=== PATIENT | male | born 1955 | race Caucasian/White ===

== ENCOUNTER → 2016-12-17 | Outpatient (CLI) | payer BC ==
[~2016-12-17] MED LIST: HYDR-5688 PO; LISI-461 PO; NAPR1TAB9 PO; SILD100T PO
--- NOTE | 2016-12-17 14:03 | DIAGNOSTIC IMAGING REPORT ---
MRI right knee RIGHT LOWER EXT JOINT WITHOUT CLINICAL HISTORY: RIGHT KNEE PAIN, R/O TEAR Right trauma. Pain. TECHNIQUE: Multiaxial MRI acquisition COMPARISON STUDY: None FINDINGS: Signal characteristics the osseous structures are uniform throughout. There is a very small joint effusion. Anterior and posterior cruciate ligaments are intact. Medial and lateral patellar retinaculum are intact. There are minimal findings of chondromalacia. Evaluation of menisci shows presence of a focal tear inferior surface posterior horn medial meniscus. Anterior meniscus. Be unremarkable. Lateral meniscus is within normal limits. IMPRESSION: 1. Focal tear inferior surface posterior horn medial meniscus. 2. Minimal chondromalacia patella. 3. Very small joint effusion. Electronically signed by: Augustus Storm M.D. 12/17/2016 2:02 PM Dictated Date/Time: 12/17/2016 1:55 PM
== END | disposition home or self-care (01) ==
LOC: C.MRIBC 12:42
PROVIDERS: ATTEND Orthopaedic Surgery
DX: S83.241A Other tear of medial meniscus, current injury, right knee, initial encounter (principal); X58.XXXA Exposure to other specified factors, initial encounter

== ENCOUNTER → 2016-12-30 | Day surgery (SDC) | payer BC ==
[2016-12-19 08:51] VITALS: BMI 43.0
[2016-12-19 08:53] VITALS: Ht 167.6 cm; Wt 120.2 kg
--- NOTE | 2016-12-19 09:13 | PAT Medication Instructions ---
Service Date Dec 19, 2016. Current Home Medication List Lisinopril (Zestril), 10 MG PO HS Sildenafil Citrate (Viagra), 100 MG PO PRN Medication Instructions For Your Scheduled Surgery - DO NOT take the following medications as the night before surgery: Lisinopril (Zestril), 10 MG PO HS Nothing to eat or drink after midnight* If you have any questions please call us at [phone] or [phone] or [phone]
[2016-12-19 10:12] LABS: HEMATOCRIT 41.8 % (42-52); MEAN CELL VOLUME 89.9 fL (80-100); MEAN CORPUSCULAR HEMOGLOBIN 31.4 pg (25-34); MEAN CORPUSCULAR HGB CONC 34.9 g/dl (32-36); MEAN PLATELET VOLUME 9.8 fL (7.4-10.4); PLATELET COUNT 241 K/uL (130-400); RED BLOOD COUNT 4.65 M/uL (4.7-6.1); WHITE BLOOD COUNT 8.99 K/uL (4.8-10.8)
[2016-12-19 10:31] LABS: BUN/CREATININE RATIO 11.9 (10-20); CALCIUM 8.5 mg/dl (8.5-10.1); CREATININE 0.89 mg/dl (0.60-1.40); POTASSIUM 4.1 mmol/L (3.5-5.1)
[~2016-12-30] VITALS: Ht 167.6 cm; Wt 120.2 kg
[~2016-12-30] MED LIST changes: +BUPIVACAINE 0.5 % 5 MG/1 ML MPF 30ML VIAL ONE; +CEFAZOLIN 3000 MG/65 ML D5W IV SCH; +DEXAMETHASONE SOD INJ 4 MG/ML VIAL ONE; +EpINEphrine INJ 1MG/ML AMP 1 MG/ML AMP ONE; +FENTANYL CITRATE INJ 50 MCG/1 ML 2 ML VIAL IV PRN; +FENTANYL CITRATE INJ 50 MCG/1 ML 2 ML VIAL ONE; +HYDROCODONE/ACETAMOPHEN 5/325MG TAB PO PRN; +KETOROLAC TROMETHAMINE 30 MG/ML VIAL IV. PRN; +KETOROLAC TROMETHAMINE 30 MG/ML VIAL ONE; +LACTATED RINGER'S 1000ML 1,000 ML IV PRN; +LACTATED RINGER'S 1000ML 1,000 ML IV SCH; +LIDOCAINE HCL 2% 2 ML VIAL (20MG/ML) ONE; +MIDAZOLAM HCL 1 MG/ML 2ML VIAL ONE; -NAPR1TAB9 PO; +ONDANSETRON INJ 2 MG/ML 2 ML VIAL IV PRN; +ONDANSETRON INJ 2 MG/ML 2 ML VIAL ONE; +PROPOFOL IV EMULSION 10 MG/ML 20 ML VIAL IV ONE; +ROPIVACAINE 0.5% 5 MG/ML 30 ML VIAL ONE; +SODIUM CHLORIDE 0.9% 1000ML 1,000 ML IV SCH
--- NOTE | 2016-12-30 06:52 | History & Physical Bridge - SC ---
H&P Re-Evaluation Bridge Note: I have examined the patient, reviewed the History & Physical and in the interval since the performance of the History & Physical I have noted the following changes of clinical significance: No changes noted
--- NOTE | 2016-12-30 07:28 | [facility] Post Operative Brief Note ---
Immediate Operative Summary Operative Date Dec 30, 2016. Pre-Operative Diagnosis Torn right medial meniscus Post-Operative Diagnosis same Procedure(s) Performed Right Knee Arthroscopy, Partial Medial Meniscectomy Surgeon Dr Couch Security Supervisor Surgeon(s) Deborah Romero PA-C Findings ABOVE Specimens 0 Anesthesia LMA Complication(s) None Disposition Recovery Room / PACU
--- NOTE | 2016-12-30 07:44 | Discharge Instructions-SurgCtr ---
Discharge Instructions Date of Service Dec 30, 2016. Visit Reason for Visit: Right Knee Current Tear Of Medial Cartilage Discharge Discharge Diagnosis / Problem: SAME ABOVE Discharge Goals Goal(s): Decrease discomfort, Improve function Activity Recommendations Activity Limitations: as noted below Lifting Limitations: gradually increase as tolerated Exercise/Sports Limitations: gradually increase as tolerated Driving or Machine Use: resume 1 day after discharge (AND WHEN COMFORTABLE GETTING FOOT FROM BRAKE TO GAS ) Anesthesia . Post Anesthesia Instructions: If you have had General Anesthesia or IV Sedation: * Do not drive today. * Resume driving when surgeon permits. * Do not make important decisions or sign legal documents today. * Call surgeon for: 1. Temperature elevations greater than 101 degrees F. 2. Uncontrollable pain. 3. Excessive bleeding. 4. Persistent nausea and vomiting. 5. Medication intolerance (nausea, vomiting or rash). * For nausea and vomiting use only clear liquids such as: tea, soda, bouillon until nausea subsides, then gradually increase diet as tolerated. * If you have any concerns or questions, call your surgeon's office. If physician is unavailable and it is an emergency, call 911 or go to the nearest emergency room. . Instructions / Follow-Up Instructions / Follow-Up MEDICATIONS: * Resume previous medications unless instructed otherwise by your surgeon. * Always take pain medication on a full stomach or with food to avoid upset stomach. * Do not drink alcohol or drive while taking narcotics. * Ibuprofen or Tylenol may be taken if narcotic not needed. SPECIAL CARE INSTRUCTIONS: __ None _X_ Keep extremity elevated and iced x 48 hours; apply ice 20-30 minutes 8-10 times/day. May remove at night. _X_ Crutches _X_ May discard when able __ Brace/Post-op shoe __ 24 hrs/day __ Remove at night _X_ Dressing __ Maintain until seen in office, may shower with plastic over site _X_ Remove dressings in 24-48 hours and then may shower _X_ Cover incisions with band-aids after showering __ Do not remove steri-strips Call physician if chills or temperature rises above 102 degrees or pain unrelieved by prescribed pain medications. Office [phone] Diet Recommendations Home Diet: no limitations Fluid Restriction: None Procedures Procedures Performed: Right Knee Arthroscopy, Partial Medial Meniscectomy Pending Studies Studies pending at discharge: no Work Instructions Return To Work: after follow-up (OR WHEN PAIN IS TOLERABLE ) Medical Emergencies . Who to Call and When: Medical Emergencies: If at any time you feel your situation is an emergency, please call 911 immediately. . Non-Emergent Contact Non-Emergency issues call your: Primary Care Provider Call Non-Emergent contact if: you have a fever, temperature is above 101.5 . . "Provider Documentation" section prepared by Umang Romero.
[2016-12-30 08:15] VITALS: BP 162/84; PULSE 65; TEMP 36.6; O2SAT 95
--- NOTE | 2016-12-30 08:15 | Anesthesia Progress Nt - [facility] ---
Anesthesia Post Op Note Date & Time Dec 30, 2016 at 08:15 Vital Signs Pain Intensity: 0 Vital Signs Past 12 Hours Date Time Temp Pulse Resp B/P Pulse Ox O2 Delivery O2 Flow Rate FiO2 12/30/16 08:10 160/87 12/30/16 08:09 37.1 92 Room Air 12/30/16 08:08 72 15 12/30/16 08:08 74 15 92 12/30/16 08:05 136/94 12/30/16 08:03 72 17 94 12/30/16 08:03 71 17 12/30/16 08:02 71 24 97 12/30/16 08:02 69 24 12/30/16 08:01 128/92 12/30/16 08:00 140/114 12/30/16 07:57 68 15 97 12/30/16 07:57 69 15 12/30/16 07:55 130/94 12/30/16 07:52 67 12 12/30/16 07:52 67 12 98 12/30/16 07:50 146/101 12/30/16 07:47 72 13 12/30/16 07:47 72 13 97 12/30/16 07:45 151/92 12/30/16 07:43 145/90 12/30/16 07:42 36.8 76 12 145/90 96 Mask 7 12/30/16 06:29 36.6 72 18 175/98 95 Room Air Notes Mental Status: alert / awake / arousable, participated in evaluation Pt Amnestic to Procedure: Yes Nausea / Vomiting: adequately controlled Pain: adequately controlled Airway Patency, RR, SpO2: stable & adequate BP & HR: stable & adequate Hydration State: stable & adequate Anesthetic Complications: no major complications apparent Pt doing well.
--- NOTE | 2016-12-30 11:54 | OPERATIVE REPORT ---
DATE OF OPERATION: 12/30/2016 PREOPERATIVE DIAGNOSIS: Medial meniscus tear, right knee. POSTOPERATIVE DIAGNOSIS: Same. PROCEDURE: Right knee arthroscopy, partial medial meniscectomy. SURGEON: Dr. Couch. LOFT PATTERNMAKER: FLORENCE Siddiqi. ANESTHESIOLOGIST: Dr. Tello. ANESTHESIA: LMA. DRAINS: None. COMPLICATIONS: None. CONDITION: The patient tolerated the procedure well and returned to the recovery room in apparent satisfactory condition. INDICATIONS FOR SURGERY: Raj is a 61-year-old male who has had increasing pain and discomfort in the right knee consistent with a medial meniscus tear based on his exam, MRI and history. Went over treatment options and elected to go ahead and proceed with surgery. Procedure, expected outcomes and side effects were all explained in detail. DESCRIPTION OF PROCEDURE: The patient was taken to the operating room, placed supine on the operating table and put to sleep by the anesthesia department. Examination of the right knee was performed. Ligamentous huggins was stable. Went ahead and prepped and draped in the usual sterile fashion. We began arthroscopic examination in the anteromedial and anterolateral portals. Immediately we had a fair amount of bleeding at his knee to the point where visualization was very poor. I checked with the anesthesia department and his blood pressure was up over 200. We elected to, as this was the first 2 minutes of the case we let the tourniquet back down and elected to work on bringing his pressure down, we finally got it down to about 150 range. We then put the pump pressure up to about 45, we put the thigh tourniquet to 300 to 325 and were able to get better visualization of his knee. Examination of the medial compartment, he had a tear of the posterior horn of the medial meniscus. We came in with upbiting scissors and full radius resector and trimmed it back to a stable rim. Articular surfaces looked to be in pretty good shape. ACL, lateral compartment were fine. We found a little erosion on the medial facet of the patella with synovitis in this part of his knee joint. This was shaved out. Remaining examination he was in good shape. Knee was copiously irrigated. All cannulas were removed. Portals were closed with 4-0 nylon sutures. 30 mL of ropivacaine, 10 mg of Toradol, and 1 mL of epinephrine was placed in the knee joint. Placed a sterile dressing of Xeroform, 4 x 4, ABD, Sof-Rol, and Jerry bandage and returned back to recovery room in apparent satisfactory condition. SURGICAL FINDINGS: Include a flap tear of the posterior horn of the medial meniscus. I attest to the content of the Intraoperative Record and any orders documented therein. Any exceptions are noted below. KAYODED
== END | disposition home or self-care (01) ==
LOC: X.SURG 06:19
PROVIDERS: ATTEND Orthopaedic Surgery
DX: M23.221 Derangement of posterior horn of medial meniscus due to old tear or injury, right knee (principal); E66.9 Obesity, unspecified; I10 Essential (primary) hypertension

== ENCOUNTER → 2017-05-14 | Outpatient (CLI) | payer BC ==
[~2017-05-14] VITALS: Ht 167.6 cm; Wt 115.3 kg
[~2017-05-14] MED LIST changes: -BUPIVACAINE 0.5 % 5 MG/1 ML MPF 30ML VIAL ONE; -CEFAZOLIN 3000 MG/65 ML D5W IV SCH; -DEXAMETHASONE SOD INJ 4 MG/ML VIAL ONE; -EpINEphrine INJ 1MG/ML AMP 1 MG/ML AMP ONE; -FENTANYL CITRATE INJ 50 MCG/1 ML 2 ML VIAL IV PRN; -FENTANYL CITRATE INJ 50 MCG/1 ML 2 ML VIAL ONE; -HYDROCODONE/ACETAMOPHEN 5/325MG TAB PO PRN; -KETOROLAC TROMETHAMINE 30 MG/ML VIAL IV. PRN; -KETOROLAC TROMETHAMINE 30 MG/ML VIAL ONE; -LACTATED RINGER'S 1000ML 1,000 ML IV PRN; -LACTATED RINGER'S 1000ML 1,000 ML IV SCH; -LIDOCAINE HCL 2% 2 ML VIAL (20MG/ML) ONE; -MIDAZOLAM HCL 1 MG/ML 2ML VIAL ONE; -ONDANSETRON INJ 2 MG/ML 2 ML VIAL IV PRN; -ONDANSETRON INJ 2 MG/ML 2 ML VIAL ONE; -PROPOFOL IV EMULSION 10 MG/ML 20 ML VIAL IV ONE; -ROPIVACAINE 0.5% 5 MG/ML 30 ML VIAL ONE; -SODIUM CHLORIDE 0.9% 1000ML 1,000 ML IV SCH
[2017-05-14 09:44] VITALS: BP 130/76; PULSE 66; Ht 167.6 cm; Wt 115.3 kg
== END | disposition home or self-care (01) ==
LOC: C.NEUR 09:05
PROVIDERS: ATTEND Internal Medicine Pulmonary Disease
DX: G47.33 Obstructive sleep apnea (adult) (pediatric) (principal); G47.52 REM sleep behavior disorder

== ENCOUNTER → 2017-05-20 | Outpatient (CLI) | payer BC ==
--- NOTE | 2017-05-21 08:15 | PAP/PSG TECHNICIAN REPORT ---
[facility] Pressing Machine Operator Polysomnogram Report Study name: None Report date: 05/21/2017 Study date: 05/20/2017 Referring Physician: MAHAMED WALKER DO, DO Name: CAMRYN HASSAN Interpreting Physician: Mahamed Walker D.O. Date of : 1955 Pressing Machine Operator: Keena Adler, PSGT. Sex: Male Age: 61 StudyType: PSG Weight: 254 lbs Height: 61 years, Height 5' 6" Neck Circum: BMI: 40.99 Medications: Viagra 100 mg, Lisinopril 10 mg. Patient History 61 yr. old male in room 7, presents tonight for rem behavior disorder. He states that this started 1.5 years ago and happens 1 or 2 times a month.Ess = 6, Neck= 18.5 inches. Split night if 15 or greater. Parameters Monitored NPSG: E1-M2, E2-M1, Fp1-M2, Fp2-M1, F3-M2, F4-M2, F4-M1, C3-M2, C4-M2, C4-M1, O1-M2, O2-M2, O2-M1, T3-M2, T4-M1, P3-M2, P4-M1, CHIN1, CHIN2, HR, EKG, Legs, PFLOW, SNOR, FLOW, CFLOW, Tidal Volume, THOR, ABDO, SpO2, PLTH, CPRESS, ETCO2 Wave, ETCO2, pH Sleep Architecture Sleep Stages Time at Lights Off 9:46:30 PM STAGES Time (min.) TST (%) Time at Lights On 12:05:00 AM Wake 22.0 -- Total Recording Time (TRT) 91.50 min. N1 1.0 1 Total Sleep Period (TSP) 69.5 min. N2 68.5 99 Total Sleep Time (TST) 69.5min. N3 0.0 0 Awake Time 22.0 min. REM 0.0 0 Wake after Sleep Onset 47.0 min. Sleep Efficiency (SE) 76 % Sleep Onset Latency (CHITO) 22.0 min. Number of Stage 1 Shifts None Awakenings N/A Stage Changes 3 Number of REM periods N/A REM 0.0 0 REM Latency 132.0 min. NREM 69.5 100 Body Position Analysis Supine Right Left Side Prone Vertical Total Sleep Time (min.) 33.1 30.1 28.3 58.44 0.0 0.0 Total Sleep Time (%) 16% 43% 41% 84 0% N/A% Total Sleep Time REM (min.) 0.0 0.0 0.0 None 0.0 0.0 Total Sleep Time NREM (min.) 11.1 30.1 28.3 None 0.0 0.0 Intermittent Wake (min.) 22.0 0.0 0.0 None 0.0 0.0 Total Sleep Period (%) 16% None None None None None Arousals Myoclonus (PLM) * Events Count Index Events Count Index Spontaneous 3 3 Events Awake (PLMW) 1 2.7 Respiratory 0 0.0 Events Asleep w/ Arousal (PLMA) 1 0.9 PLM 1 1 Events Asleep w/o Arousal (PLMS) 21 18.1 Snoring 0 0 Total Asleep 22 19.0 Total 4 3 Total 23 15 Respiratory Analysis * CA OA MA CH H RERA Total Count 0 0 0 0 0 0 0 Index 0.0 0.0 0.0 0 0.0 0 0.0 Mean Duration 0.0 0.0 0.0 0.00 0.0 0.0 0.0 Longest Duration 0.0 0.0 0.0 0.00 0.0 0.0 0.0 Respiratory Event Summary Total Supine ~Supine Right Left Prone REM NREM Apneas Count 0 0 0 0 0 N/A N/A 0 Index 0.0 0 0 0.0 0.0 N/A N/A 0 Hypopneas (4% Desat) Count 0 0 0 0 0 N/A N/A 0 Index 0.0 0.0 0 0.0 0.0 N/A N/A 0.0 Apneas & All Hypopneas Count 0 0 0 0 0 N/A N/A 0 Index 0.0 0 0 0 0 N/A N/A 0.0 Respiratory Events (Materials Coordinator+All Hyp+RERA) Count 0 0 0 0 0 N/A N/A 0 Index 0.0 0 0 0.0 0.0 N/A N/A 0.0 Respiratory Related Arousal Count 0 0 0 0 0 N/A N/A 0 Index 0.0 0 0 0 0 N/A N/A 0 Snoring Analysis Supine Right Left Prone REM NREM Total Snore duration 1.1 min Snores count 1 22 38 N/A N/A 61 61 Snore mean duration 1.1 Sec Snores index 5 44 81 N/A N/A 52.7 52.7 TST with snoring (%) 1.6% Desaturation Event Summary: Minimum %SpO2 Event Count Mean/Min/Max Duration(sec.) Desaturation Index % Time In Bed > 90 1 27.3 / 27.3 / 27.3 0.7 97.8 86 - 90 0 N/A 0.0 2.2 81 - 85 0 N/A 0.0 0.0 76 - 80 0 N/A 0.0 0.0 71 - 75 0 N/A 0.0 0.0 66 - 70 0 N/A 0.0 0.0 61 - 65 0 N/A 0.0 0.0 56 - 60 0 N/A 0.0 0.0 51 - 55 0 N/A 0.0 0.0 < 50 0 N/A 0.0 0.0 Total REM NREM Awake <50% 0.0 min. 0.0 min. 0.0 min. 0.0 min. 51 - 60% 0.0 min. 0.0 min. 0.0 min. 0.0 min. 61 - 70% 0.0 min. 0.0 min. 0.0 min. 0.0 min. 71 - 80% 0.0 min. 0.0 min. 0.0 min. 0.0 min. 81 - 90% 2.1 min. 0.0 min. 2.1 min. 0.0 min. 91 - 100% 89.5 min. 0.0 min. 67.5 min. 22.0 min. Average 92 0 92 94 Minimum SpO2 89 N/A 89 91 Desaturation Event Index 0.7 0.0 0.9 0.0 # Desat. Events below 89% N/A N/A N/A N/A Time(%) with Saturation below 89% 0.0 0.0 0.0 0.0 Time(min.) with Saturation below 89% 0.0 0.0 0.0 0.0 Time (mins) REM (mins) NREM (mins) % of TST SpO2 Below 90% 1 N/A N1 0.1 SpO2 Below 88% 0 0 0 0 Heart Rate Analysis Min (bpm) Max (bpm) Average (bpm) Awake 58 71 62 NREM 56 80 61 REM N/A N/A N/A Overall 56 80 61 Supplemental O2 Values Minimum O2 level: None Value Start Time End Time Pressing Machine Operator Comments Mr. Anderson slept in the right, left, and supine positions. No cardiac arrhythmia or PLM's noted. No bruxism noted. Snoring was noted and scored as a 2-3 on a scale of 1 through 5. (0=no snoring, 5=snoring loud enough to be heard through a closed door or down the [address] way) awoke to use the restroom one time during the night. Mr. Hassan stated, I did sleep very well. My wakes me with her loud snoring at home. The final report will be interpreted and signed by a sleep physician. The completed physician report will then be placed in the patient medical record. Nothing significant was seen throughout the study. Mild to moderate snoring at times. During the night, the computer shut off abruptly and would not allow test to be appended when powered back on, this caused patient's test to be in two parts. Please use the sleep latency from the shorter, earlier test. Therapy (cm H2O) 0 TIB (min.) 91.5 TST (min.) 69.5 Sleep Onset (min.) 22.0 REM Onset From Sleep (min.) NONE Sleep Efficiency % 76 Wakefulness (%) 16 Wakefulness (min.) 22.0 NREM 1 (%) 1 NREM 1 (min.) 1.0 NREM 2 (%) 99 NREM 2 (min.) 68.5 NREM 3 (%) 0 NREM 3 (min.) 0.0 REM (%) 0 REM (min.) 0.0 # Arousals 4 Arousal Index 3 # Snore 61 Snore Index 52.7 AHI 0.0 AHI Supine 0 AHI Non-Supine 0 NREM AHI 0.0 REM AHI N/A RDI 0.0 # Obstructive Apnea 0 # Central Apnea 0 # Mixed Apnea 0 # Hypopneas 0 RERAs 0 Total Respiratory Events 0 Time Below SpO2 89% (min.) 0.0 Mean NREM SpO2 (%) 92 Mean REM SpO2 (%) N/A Mean Sleep SpO2 (%) 92 Min NREM SpO2 (%) 89 Min REM SpO2 (%) N/A Position Supine (min.) 33.1 Position Non-supine (min.) 58.4 LM Index Sleep 19.0 LM Index NREM 19.0 LM Index REM N/A Mean Heart Rate (bpm) 61 Min Heart Rate (bpm) 56
--- NOTE | 2017-05-29 13:35 | Sleep Study ---
Sleep Study Report Date of Service: 05/20/2017 Sleep Study Report Clinical data: The patient is a 61-year-old male who has a history acting out his dreams for 2 or 3 years. His symptoms improved after stopping trazodone but they have persisted. His BMI is elevated at 40.99. he has a history of snoring. The study is being done to rule out sleep apnea and REM behavior disorder. Sleep architecture: The total sleep period was 422 minutes. The total sleep time was 396.5 minutes. The sleep efficiency was 86 percent. The sleep latency was 22 minutes. Wake after sleep onset was 40.5 minutes. The REM latency was prolonged to 130 minutes. Sleep consisted of stage N1 9 percent, stage N2 70 percent, stage N3 4 percent, and stage REM 16 percent. Arousal data: The patient had a total of 53 arousals including 45 spontaneous arousals, 6 PLM arousals, and 2 snoring arousals. The arousal index was 8. PLM data: The patient had a total of 159 periodic limb movements of sleep for a PLM index of 24.1. There were 6 arousals associated with limb movements for a PLM arousal index of 0.9. EKG: The underlying cardiac rhythm was normal sinus. No cardiac arrhythmia was noted. Cardiac rates ranged from 56 to 75 beats per minute. The average heart rate was 61 beats per minute. Respiratory data: The patient had no respiratory events. There was no apneas or hypopneas. The apnea-hypopnea index was 0. Oximetry data: The average saturation was 92 percent. The minimum saturation was 89 percent. Engineering And Development Director comments: The patient slept on the right, left, and supine positions. No bruxism noted. Snoring was noted and scored as a 2-3 on a scale of 1 through 5. The patient awakened to use the restroom 1 time during the night. Patient stated that he did sleep very well. He states his wakes him up at home with her loud snoring. Impressions: 1. Probable REM behavior disorder 2. Periodic limb movement disorder Comments: The patient had [id number] snoring. He had no sleep apnea. His history was suggestive for REM behavior disorder. According to the patient and his he clearly acts out his dreams. He never gets out of bed doing this however. His has been inadvertently struck a few times related to this. Review of the REM episodes during this study showed at times a heightened level of muscle tone during REM. He did not however act out his dreams. Recommendations: 1. Consideration is given to a trial of clonazepam 0.5 milligrams HS 2. As much as possible the patient should avoid significant stress particularly before bed. 3. The patient should have at least 7.5 hours of sleep nightly and should avoid insufficient sleep. 4. The patient should avoid sleeping in the supine position as typically there is more snoring and respiratory events when supine. 5. Weight loss is advised in light of the elevation of body mass index of 40.99. Copies To 1: Mahamed Marte, ; Barbara Mckeon PAC
== END | disposition home or self-care (01) ==
LOC: C.NEUR 21:00
PROVIDERS: ATTEND Internal Medicine Pulmonary Disease
DX: G47.33 Obstructive sleep apnea (adult) (pediatric) (principal); G47.52 REM sleep behavior disorder

== ENCOUNTER → 2017-05-28 | Outpatient (CLI) | payer BC ==
[~2017-05-28] VITALS: Ht 167.6 cm; Wt 115.1 kg
[2017-05-28 15:45] VITALS: BP 127/71; PULSE 67; Ht 167.6 cm; Wt 115.1 kg
== END | disposition home or self-care (01) ==
LOC: C.NEUR 15:16
PROVIDERS: ATTEND Internal Medicine Pulmonary Disease
DX: G47.52 REM sleep behavior disorder (principal)

== ENCOUNTER → 2017-07-23 | Outpatient (CLI) | payer BC ==
[~2017-07-23] VITALS: Ht 167.6 cm; Wt 118.0 kg
[~2017-07-23] MED LIST changes: -HYDR-5688 PO
[2017-07-23 11:25] VITALS: BP 144/83; PULSE 73; Ht 167.6 cm; Wt 118.0 kg
== END | disposition home or self-care (01) ==
LOC: C.NEUR 08:03
PROVIDERS: ATTEND Internal Medicine Pulmonary Disease
DX: G47.52 REM sleep behavior disorder (principal)

== ENCOUNTER → 2017-12-25 | Outpatient (CLI) | payer OTHER ==
[2017-12-25 10:31] LABS: ALT/SGPT 21 U/L (12-78); AST/SGOT 14 U/L (15-37); BLOOD UREA NITROGEN 17 mg/dl (7-18); CALCIUM 8.7 mg/dl (8.5-10.1); CARBON DIOXIDE 27 mmol/L (21-32); CHOLESTEROL 155 mg/dl (0-200); GLUCOSE 97 mg/dl (70-99); SODIUM 138 mmol/L (136-145)
[2017-12-25 10:35] LABS: LDL CHOLESTEROL CALCULATED 89 mg/dl
== END | disposition home or self-care (01) ==
LOC: C.LAB 07:01
PROVIDERS: ATTEND Internal Medicine
DX: R73.03 Prediabetes (principal); N52.9 Male erectile dysfunction, unspecified; I10 Essential (primary) hypertension

== ENCOUNTER → 2018-01-14 | Outpatient (CLI) | payer OTHER ==
[~2018-01-14] VITALS: Ht 167.6 cm; Wt 116.2 kg
[2018-01-14 09:02] VITALS: BP 136/81; PULSE 67; Ht 167.6 cm; Wt 116.2 kg
== END | disposition home or self-care (01) ==
LOC: C.NEUR 08:20
PROVIDERS: ATTEND Internal Medicine Pulmonary Disease
DX: G47.52 REM sleep behavior disorder (principal)

== ENCOUNTER → 2018-05-24 | Outpatient (CLI) | payer OTHER ==
[~2018-05-24] MED LIST changes: +GLUCTAB7 PO; +KLN/5 PO; +OMEG500C2 PO
[2018-05-24 15:43] LABS: BASO % 0.2 %; BASO ABS # 0.02 K/uL (0-0.2); EOS % 1.5 %; EOS ABS # 0.14 K/uL (0-0.5); HEMATOCRIT 41.2 % (42-52); HEMOGLOBIN 13.8 g/dL (14.0-18.0); IG# 0.03 K/uL (0.00-0.02); LYMPH % 28.8 %; LYMPH ABS # 2.75 K/uL (1.2-3.4); MEAN CELL VOLUME 90.5 fL (80-100); MEAN CORPUSCULAR HEMOGLOBIN 30.3 pg (25-34); MEAN CORPUSCULAR HGB CONC 33.5 g/dl (32-36); MEAN PLATELET VOLUME 10.4 fL (7.4-10.4); MONO % 7.6 %; MONO ABS # 0.73 K/uL (0.11-0.59); NEUT % 61.6 %; NEUT ABS # 5.89 K/uL (1.4-6.5); PLATELET COUNT 257 K/uL (130-400); RED CELL DISTRIBUTION WIDTH CV 13.9 % (11.5-14.5); RED CELL DISTRIBUTION WIDTH SD 45.5 fL (36.4-46.3); WHITE BLOOD COUNT 9.56 K/uL (4.8-10.8)
[2018-05-24 15:54] LABS: PTT PATIENT 25.4 SECONDS (21.0-31.0)
[2018-05-24 16:04] LABS: BLOOD UREA NITROGEN 13 mg/dl (7-18); CARBON DIOXIDE 24 mmol/L (21-32); CREATININE 0.91 mg/dl (0.60-1.40); GLUCOSE 90 mg/dl (70-99); POTASSIUM 3.8 mmol/L (3.5-5.1); SODIUM 141 mmol/L (136-145)
== END | disposition home or self-care (01) ==
LOC: C.LAB 14:01
PROVIDERS: ATTEND Internal Medicine Interventional Cardiology
DX: I10 Essential (primary) hypertension (principal); R73.03 Prediabetes; I87.2 Venous insufficiency (chronic) (peripheral)